=== PATIENT | female | born 1955 | race African-American/Black ===

== ENCOUNTER 2018-03-30 18:17 | Emergency (ER) | payer OTHER, SELFPAY ==
[2018-03-30 19:15] LABS: INR-International Normal Ratio 1.1; PTT 23.4 SEC (22.9-36.1)
[2018-03-30 19:19] LABS: #Basophils 0.1 thou/uL (0.0-0.2); #Eosinphils 0.1 thou/uL (0.0-0.7); #Lymphocytes 1.4 thou/uL (1.20-3.40); #Monocytes 0.5 thou/uL (0.11-0.59); #Neutrophils 2.3 thou/uL (1.40-6.50); %Basophils 1.2 % (0.0-1.0); %Eosinophils 1.4 % (0.0-10.0); %Lymphocytes 33.3 % (21.0-51.0); %Monocytes 10.3 % (0.0-10.0); %Neutrophils 53.9 % (42.0-75.0); Hemoglobin 11.9 g/dL (12.0-16.0); Mean Corpuscular HGB CONC 32.4 g/dL (32.0-36.0); Mean Corpuscular Hemoglobin 34.6 pg (27.0-31.0); Mean Platelet Volume 7.2 fL (7.4-10.4); Platelet Count 201 thou/uL (130-400); RBC Distribution Width 11.8 % (11.5-14.5); Red Blood Cell (RBC) Count 3.44 mill/uL (4.20-5.40); White Blood Cell (WBC) Count 4.3 thou/uL (4.8-10.8)
[2018-03-30 19:25] LABS: Troponin I Less than 0.010 ng/mL (< 0.028)
[2018-03-30 19:26] LABS: ALT (SGPT) 12 U/L (8-55); AST (SGOT) 14 U/L (5-34); Albumin 4.3 g/dL (3.4-4.8); Alkaline Phosphatase 57 U/L (40-150); Anion Gap 16 mmol/L (10-20); BUN (Urea Nitrogen) 13 mg/dL (9.8-20.1); Bilirubin, Total 0.7 mg/dL (0.2-1.2); CK (CPK) 36 U/L (29-168); Calc. Creatinine Clearance 0 mL/min (70-130); Calcium 10.2 mg/dL (7.8-10.44); Chloride 109 mmol/L (98-107); Estimated GFR-MDRD Greater than 90; Glucose 87 mg/dL (80-115); Potassium 3.7 mmol/L (3.5-5.1); Protein, Total 6.3 g/dL (6.0-8.3); Sodium 144 mmol/L (136-145)
[2018-03-30 19:28] LABS: CKMB 0.4 ng/mL (0-6.6); Carbon Dioxide 23 mmol/L (23-31)
[2018-03-30 19:48] LABS: Bilirubin Negative (Negative); Blood, Urine Trace (Negative); Clarity Clear (Clear); Glucose, Urine (Dipstick) Negative (Negative); Leukocyte Negative (Negative); Nitrite Negative (Negative); Protein, Urine (Dipstick) Negative (Neg-Trace); Specific Gravity, Urine 1.015 (1.005-1.030); Urobilinogen 0.2 mg/dL (0.2-1.0)
--- NOTE | 2018-03-30 20:01 | CT ---
CT BRAIN WITHOUT CONTRAST: 03/30/18 HISTORY: Altered mental status. COMPARISON: CT brain 2010. FINDINGS: New from the comparison examination is an area of hypodensity along the right posterior cerebellum, a lthough this is very hypodense and likely chronic. Extensive microangiopathic changes in the subcorti louann and deep white matter. No hemorrhage. No midline shift. Bones are demineralized. Multiple round lucencies throughout the calvarium increasing the comparison examination. IMPRESSION: 1. New from the comparison examination, peripheral hypodensity along the right superior cerebell um, posterior cerebellum suggestive for old infarction. 2. Extensive microvascular subcortical and deep white matter changes. 3. Osseous demineralization of the calvarium with numerous round lytic foci. Recommend correlati on for history of myeloma. If there is none, a workup would be highly recommended. 4. The hypodense foci of the thalami bilaterally are new from the comparison examination and are age indeterminate. MRI may be helpful in this patient. 5. Although may be artifactual, along the anterior asiya a soft tissue density. Again MRI with an d without contrast is recommended. Code T POS: CARRIE
[2018-03-30 20:08] LABS: RBC/HPF None Seen HPF (0-3); Squamous Epithelial 0-3 HPF (0-3); WBC/HPF 0-3 HPF (0-3)
== END 2018-03-30 21:15 | disposition short-term general hospital (02) ==
LOC: NAV ERS 18:17
DX: I63.9 Cerebral infarction, unspecified (principal); H53.2 Diplopia; E78.5 Hyperlipidemia, unspecified; I10 Essential (primary) hypertension; F17.210 Nicotine dependence, cigarettes, uncomplicated; Z79.899 Other long term (current) drug therapy
CPT/HCPCS: 70450; 80053; 81003; 81015; 82550; 82553; 84484; 85025; 85610; 85730; 93005

== ENCOUNTER 2019-03-28 13:11 | Emergency (ER) | payer OTHER ==
[2019-03-28] MEDS ORDERED: Fluorescein Opthalmic Strip ONE (13:19)
[2019-03-28] MEDS ORDERED: Proparacaine 0.5% Opth 15 ML BOT ONE (13:19)
[2019-03-28] MEDS ORDERED: Adacel (T-DAP) 0.5 ML SYRINGE ONE (13:24)
== END 2019-03-28 13:46 | disposition home or self-care (01) ==
LOC: NAV ERS 13:11
DX: S05.01XA Injury of conjunctiva and corneal abrasion without foreign body, right eye, initial encounter (principal); F17.210 Nicotine dependence, cigarettes, uncomplicated; I10 Essential (primary) hypertension; E78.5 Hyperlipidemia, unspecified; Z71.6 Tobacco abuse counseling; Z79.899 Other long term (current) drug therapy
CPT/HCPCS: 90471; 90715; 99406